=== PATIENT | female | born 1995 | race Caucasian/White ===

== ENCOUNTER 2022-06-14 08:00 | Day surgery (SDC) | payer OTHER, BC ==
[~2022-06-14] VITALS: Ht 170.2 cm; Wt 55.8 kg
[~2022-06-14 08:00] MED LIST: IBUP100S PO
[2022-06-14] MEDS ORDERED: ELINEST-28 TAB1 EACH PO (08:40)
[2022-06-14] MEDS ORDERED: PROAIR RESPICL90 MCG IH (08:40)
--- NOTE | 2022-06-14 10:50 | NUR ---
06/14/22 1050 Carmen Mccollum ORSC.JAR LOWER PREP ORSC.ZARI UPPER PREP
--- NOTE | 2022-06-14 12:32 | NUR ---
06/14/22 1232 Kole,Sharon'Caprice Jose Armando PAD WITH NO BLOOD PRESENT
== END 2022-06-14 12:35 | disposition home or self-care (01) ==
LOC: ORSCSDS 08:00
PROVIDERS: Obstetrics & Gynecology
PROC: 0UT74ZZ Resection of Bilateral Fallopian Tubes, Percutaneous Endoscopic Approach (ICD-10-PCS; principal; 2022-06-14 09:30)
DX: Z30.2 Encounter for sterilization (principal); J45.909 Unspecified asthma, uncomplicated; K21.9 Gastro-esophageal reflux disease without esophagitis; Z79.899 Other long term (current) drug therapy
CPT/HCPCS: 88302; J0171; J0690; J1100; J1885; J2405; J2704; J2795; J3010

== ENCOUNTER → 2024-07-11 | Outpatient (CLI) | payer BC ==
[~2024-07-11] MED LIST changes: +ELINEST-28 TAB1 EACH PO; +PROAIR RESPICL90 MCG IH
== END ==
LOC: LAB SHORT 17:39 → LAB 17:39
DX: R30.0 Dysuria (principal); R35.0 Frequency of micturition; R31.9 Hematuria, unspecified
CPT/HCPCS: 87077; 87086; 87186